=== PATIENT | male | born 1965 | race Caucasian/White ===

== ENCOUNTER → 2016-08-28 | Outpatient (CLI) | payer OTHER | LOC: OPSV 07:42 | DX: Z45.89 Encounter for adjustment and management of other implanted devices (principal) | CPT/HCPCS: G0463; J1642 ==

== ENCOUNTER → 2016-10-02 | Outpatient (CLI) | payer OTHER ==
[~2016-10-02] VITALS: Ht 170.2 cm; Wt 86.2 kg
== END ==
LOC: OPSV 08:00
DX: Z45.89 Encounter for adjustment and management of other implanted devices (principal)
CPT/HCPCS: 96523; J1642

== ENCOUNTER → 2016-10-30 | Outpatient (CLI) | payer OTHER ==
[~2016-10-30] VITALS: Ht 170.2 cm; Wt 86.2 kg
== END ==
LOC: OPSV 08:00
DX: Z45.89 Encounter for adjustment and management of other implanted devices (principal)
CPT/HCPCS: 96523; J1642

== ENCOUNTER → 2016-11-12 | Outpatient (CLI) | payer OTHER | LOC: HEART 5 13:00 | DX: R00.2 Palpitations (principal); I48.91 Unspecified atrial fibrillation ==

== ENCOUNTER → 2016-12-04 | Outpatient (CLI) | payer OTHER | LOC: OPSV 08:00 | DX: Z45.89 Encounter for adjustment and management of other implanted devices (principal) | CPT/HCPCS: 96523; G0463; J1642 ==

== ENCOUNTER → 2021-07-02 | Outpatient (CLI) | payer OTHER ==
[~2021-07-02] MED LIST: COZAAR50 MG PO; DILTIAZEM 24HR180 MG PO; ELIQUIS5 MG PO; K-PHOS #2 TABL1 EACH PO; KLOR-CON 1010 MEQ PO; LANTUS100 UNIT/1 SQ; LASIX40 MG PO; MYCOPHENOLIC A180 MG PO; PROGRAF1 MG PO; ROCALTROL0.5 MCG PO; ZYLOPRIM 100 M100 MG PO
== END ==
LOC: KOH-I 11:47
DX: M25.531 Pain in right wrist (principal)
CPT/HCPCS: 73110

== ENCOUNTER → 2021-09-03 | Outpatient (CLI) | payer OTHER ==
[2021-09-03 09:51] LABS: HEMOGLOBIN 14.7 gm/dl (14.0-17.5); RED BLOOD COUNT 5.29 M/UL (4.20-5.50); WHITE BLOOD COUNT 9.1 K/UL (4.5-11.0)
== END ==
LOC: LAB 09:16
PROVIDERS: Internal Medicine
DX: Z48.22 Encounter for aftercare following kidney transplant (principal)
CPT/HCPCS: 36415; 80069; 83735; 85025

== ENCOUNTER 2021-09-28 15:53 | Inpatient (IN) | payer OTHER ==
[~2021-09-28] VITALS: Ht 172.7 cm
[~2021-09-28 15:53] MED LIST changes: -COZAAR50 MG PO
[2021-09-28 16:43] LABS: HEMOGLOBIN 16.6 gm/dl (14.0-17.5); RED BLOOD COUNT 5.76 M/UL (4.20-5.50); WHITE BLOOD COUNT 15.1 K/UL (4.5-11.0)
[2021-09-28 17:21] LABS: BUN/CREATININE RATIO 19 (0-10)
[2021-09-29] MEDS ORDERED: ULORIC80 MG PO (02:17)
[2021-09-29] MEDS ORDERED: BUMETANIDE1 MG PO (02:17)
[2021-09-29] MEDS ORDERED: CARDIZEM CD120 MG PO (02:18)
[2021-09-29] MEDS ORDERED: LANTUS100 UNIT/1 SQ (02:19)
[2021-09-29] MEDS ORDERED: LOPRESSOR 50 MG50 MG PO (02:20)
[2021-09-29] MEDS ORDERED: AZELASTINE137 MCG/0. (02:21)
[2021-09-29 04:49] LABS: HEMOGLOBIN 15.1 gm/dl (14.0-17.5); RED BLOOD COUNT 5.32 M/UL (4.20-5.50); WHITE BLOOD COUNT 14.5 K/UL (4.5-11.0)
[2021-09-29] MEDS ORDERED: COZAAR25 MG PO (07:35)
[2021-09-29] MEDS ORDERED: TACROLIMUS1 MG PO (08:36)
[2021-09-30 04:08] LABS: HEMOGLOBIN 14.7 gm/dl (14.0-17.5); RED BLOOD COUNT 5.18 M/UL (4.20-5.50); WHITE BLOOD COUNT 15.7 K/UL (4.5-11.0)
[2021-10-01 02:21] LABS: RED BLOOD COUNT 4.89 M/UL (4.20-5.50); WHITE BLOOD COUNT 16.5 K/UL (4.5-11.0)
[2021-10-02 01:03] LABS: HEMOGLOBIN 13.1 gm/dl (14.0-17.5); RED BLOOD COUNT 4.57 M/UL (4.20-5.50); WHITE BLOOD COUNT 16.4 K/UL (4.5-11.0)
[2021-10-02 17:09] LABS: ORGANISM ID Not indicated. (.); SPECIMEN SOURCE Urine (.); STREPTOCOCCUS PNEUMONIAE AG Negative (Negative)
[2021-10-03 04:26] LABS: HEMOGLOBIN 13.7 gm/dl (14.0-17.5); RED BLOOD COUNT 4.83 M/UL (4.20-5.50); WHITE BLOOD COUNT 13.2 K/UL (4.5-11.0)
[2021-10-04 04:52] LABS: HEMOGLOBIN 13.6 gm/dl (14.0-17.5); RED BLOOD COUNT 4.74 M/UL (4.20-5.50); WHITE BLOOD COUNT 12.5 K/UL (4.5-11.0)
[2021-10-05 09:16] LABS: HEMOGLOBIN 12.7 gm/dl (14.0-17.5); RED BLOOD COUNT 4.53 M/UL (4.20-5.50); WHITE BLOOD COUNT 12.7 K/UL (4.5-11.0)
[2021-10-05 20:43] LABS: HEMOGLOBIN 12.9 gm/dl (14.0-17.5); RED BLOOD COUNT 4.54 M/UL (4.20-5.50); WHITE BLOOD COUNT 11.2 K/UL (4.5-11.0)
[2021-10-06 04:35] LABS: HEMOGLOBIN 12.8 gm/dl (14.0-17.5); RED BLOOD COUNT 4.61 M/UL (4.20-5.50); WHITE BLOOD COUNT 11.8 K/UL (4.5-11.0)
[2021-10-06 05:29] LABS: BUN/CREATININE RATIO 21 (0-10)
[2021-10-06] MEDS ORDERED: CARDIZEM 60MG T60 MG PO (16:44)
[2021-10-06] MEDS ORDERED: ATORVASTATIN CA10 MG PO (16:44)
[2021-10-06] MEDS ORDERED: ALPRAZOLAM0.5 MG PO (16:44)
[2021-10-06] MEDS ORDERED: OMNICEF 300 MG300 MG PO (16:44)
[2021-10-06] MEDS ORDERED: NITROGLYCERIN0.4 MG SL (16:44)
[2021-10-06] MEDS ORDERED: ZOLPIDEM TARTRAT5 MG PO (16:44)
[2021-10-06] MEDS ORDERED: BRILINTA 90 MG90 MG PO (16:44)
[2021-10-06] MEDS ORDERED: LOPRESSOR 50 MG50 MG PO (16:44)
== END 2021-10-06 18:10 | disposition home or self-care (01) | DRG 853 ==
LOC: ER1 15:53 → PROG CARE 19:11 → CDU 19:11 → PROG CARE 09-29 02:06
PROVIDERS: Internal Medicine; Internal Medicine Interventional Cardiology; Student in an Organized Health Care Education/Training Program; ADMIT Family Medicine
PROC: B24BZZZ Ultrasonography of Heart with Aorta (ICD-10-PCS; principal; 2021-09-29)
PROC: 4A023N7 Measurement of Cardiac Sampling and Pressure, Left Heart, Percutaneous Approach (ICD-10-PCS; 2021-10-01)
PROC: B2111ZZ Fluoroscopy of Multiple Coronary Arteries using Low Osmolar Contrast (ICD-10-PCS; 2021-10-01)
PROC: 027034Z Dilation of Coronary Artery, One Artery with Drug-eluting Intraluminal Device, Percutaneous Approach (ICD-10-PCS; 2021-10-05)
PROC: B2111ZZ Fluoroscopy of Multiple Coronary Arteries using Low Osmolar Contrast (ICD-10-PCS; 2021-10-05)
DX: A41.9 Sepsis, unspecified organism (principal); J18.9 Pneumonia, unspecified organism; I21.4 Non-ST elevation (NSTEMI) myocardial infarction; Z20.822 Contact with and (suspected) exposure to COVID-19; T86.12 Kidney transplant failure; J98.11 Atelectasis; N02.8 Recurrent and persistent hematuria with other morphologic changes; D84.9 Immunodeficiency, unspecified; I48.20 Chronic atrial fibrillation, unspecified; M10.9 Gout, unspecified; E11.22 Type 2 diabetes mellitus with diabetic chronic kidney disease; I25.10 Atherosclerotic heart disease of native coronary artery without angina pectoris; I12.9 Hypertensive chronic kidney disease with stage 1 through stage 4 chronic kidney disease, or unspecified chronic kidney disease; N18.30 Chronic kidney disease, stage 3 unspecified; E83.42 Hypomagnesemia; Z79.01 Long term (current) use of anticoagulants; Z90.89 Acquired absence of other organs; Z79.82 Long term (current) use of aspirin; Z85.828 Personal history of other malignant neoplasm of skin; Z79.4 Long term (current) use of insulin; Z79.899 Other long term (current) drug therapy
CPT/HCPCS: ECHO; 36415; 71045; 71250; 78452; 78580; 80048; 80053; 80061; 80307; 81001; 82550; 82553; 82570; 82962; 83036; 83540; 83550; 83735; 83880; 84156; 84439; 84443; 84484; 85025; 85027; 85347; 85610; 85652; 85730; 86140; 87040; 87086; 87278; 87899; 93005; 93306; 94760; 96365; 96375; 96376; 99152; 99153; 99285; A9505; A9540; C1725; C1769; C1874; C1887; C1894; C9600; J0456; J0461; J0696; J1170; J1644; J2185; J2250; J2270; J2405; J3010; J3246; J3475; J7030; J7040; J7507; Q9965

== ENCOUNTER → 2021-10-29 | Outpatient (CLI) | payer OTHER ==
[~2021-10-29] MED LIST changes: +ALPRAZOLAM0.5 MG PO; +ATORVASTATIN CA10 MG PO; +AZELASTINE137 MCG/0.; +BRILINTA 90 MG90 MG PO; +BUMETANIDE1 MG PO; +CARDIZEM 60MG T60 MG PO; +CARDIZEM CD120 MG PO; +COZAAR25 MG PO; +LOPRESSOR 50 MG50 MG PO; +NITROGLYCERIN0.4 MG SL; +OMNICEF 300 MG300 MG PO; +TACROLIMUS1 MG PO; +ULORIC80 MG PO; +ZOLPIDEM TARTRAT5 MG PO
== END ==
LOC: KOH-I 15:15
DX: M25.532 Pain in left wrist (principal); R50.9 Fever, unspecified
CPT/HCPCS: 71046; 73110

== ENCOUNTER → 2021-11-05 | Outpatient (CLI) | payer OTHER | LOC: KOH-I 08:00 → MRI 08:19 | DX: R50.9 Fever, unspecified (principal); R74.8 Abnormal levels of other serum enzymes; R79.82 Elevated C-reactive protein (CRP); R22.32 Localized swelling, mass and lump, left upper limb | CPT/HCPCS: 73221; 76705 ==

== ENCOUNTER → 2021-12-12 | Outpatient (CLI) | payer OTHER ==
[2021-12-12 09:54] LABS: HEMOGLOBIN 14.2 gm/dl (14.0-17.5); RED BLOOD COUNT 5.17 M/UL (4.20-5.50); WHITE BLOOD COUNT 11.7 K/UL (4.5-11.0)
== END ==
LOC: LAB 09:27
PROVIDERS: Internal Medicine
DX: Z48.22 Encounter for aftercare following kidney transplant (principal); Z94.0 Kidney transplant status; Z79.899 Other long term (current) drug therapy
CPT/HCPCS: 36415; 80069; 83735; 85025

== ENCOUNTER → 2022-03-22 | Outpatient (CLI) | payer OTHER ==
[2022-03-22 10:15] LABS: RED BLOOD COUNT 5.06 M/UL (4.20-5.50); WHITE BLOOD COUNT 18.6 K/UL (4.5-11.0)
[2022-03-26 08:14] LABS: CHOLESTEROL, TOTAL 146 mg/dL (100-199); HDL CHOLESTEROL 44 mg/dL (>39); LDL CHOLESTEROL CALC 81 mg/dL (0-99); LDL/HDL RATIO 1.8 ratio (0.0-3.6); T. CHOL/HDL RATIO 3.3 ratio (0.0-5.0); TRIGLYCERIDES 119 mg/dL (0-149)
== END ==
LOC: LAB 09:21
PROVIDERS: Internal Medicine Cardiovascular Disease
DX: Z48.22 Encounter for aftercare following kidney transplant (principal); Z94.0 Kidney transplant status; I48.91 Unspecified atrial fibrillation; I10 Essential (primary) hypertension; E11.9 Type 2 diabetes mellitus without complications; Z79.899 Other long term (current) drug therapy
CPT/HCPCS: 36415; 80061; 80069; 82247; 82248; 83735; 84075; 84155; 84450; 84460; 85025